=== PATIENT | male | born 1950 | race Caucasian/White ===

== ENCOUNTER 2020-01-04 08:13 | Emergency (ER) | payer MEDICARE, OTHER ==
[2020-01-04] MEDS ORDERED: Ondansetron 4 MG/2 ML SDV IVPUSH ONE (08:28)
[2020-01-04] MEDS ORDERED: Aspirin 81 MG Tab.Chew PO ONE (08:28)
[2020-01-04] MEDS ORDERED: Nitroglycerin/D5W 25 MG/250 ML BOTTLE IV SCH (08:30)
[2020-01-04] MEDS ORDERED: Sodium Chloride 0.9% 1,000 ML IV SCH (08:30)
[2020-01-04] MEDS ORDERED: LORazepam 2 MG/ML SDV IV PRN (08:32)
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
[2020-01-04] MEDS ORDERED: Atropine 0.4 MG/ML SDV IVPUSH ONE (09:24)
[2020-01-04] MEDS ORDERED: fentaNYL 100 MCG/2 ML SDV IVPUSH ONE (09:25)
[2020-01-04] MEDS: Atropine 0.1 MG/ML 10 ML Syringe IVPUSH ONE ×2 (09:31→09:36)
--- NOTE | 2020-01-04 09:36 | CR ---
Chest: Portable view of the chest was obtained. Comparison: No prior chest imaging is available. Heart size and mediastinum are normal. Lungs are clear with no acute parenchymal change. Bony structures are grossly intact. Impression: 1. Nothing acute is appreciated on portable chest x-ray. Diagnostic code #1 This report was dictated in MDT
[2020-01-04] MEDS ORDERED: Metoclopramide 10 MG/2 ML SDV IVPUSH ONE (09:45)
--- NOTE | 2020-01-04 11:01 | CT ---
CT abdomen and pelvis Technique: Multiple axial sections were obtained from above the dome of the diaphragm inferiorly through the pubic symphysis. Intravenous contrast not utilized. Oral contrast has been given. Findings: Coronary artery calcification is seen as well as possible stent. Small amount of contrast is seen within the distal esophagus compatible with reflux. Visualized lung bases show nothing acute. Moderately large hiatal hernia is noted. Noncontrast appearance of the liver and spleen shows no discrete abnormality. Adrenal glands show no nodule. Pancreas shows no discrete abnormality. Gallbladder contains possible small gallstone. Aorta shows atherosclerotic calcification which continues into the iliac vessels. No aneurysm is seen. Right kidney appears within normal limits. Parapelvic cyst is felt to be present within the left kidney. Smaller cortical cysts are also suggested within the left kidney. Ureters show no dilatation or abnormal calcifications. Diverticuli are seen within the descending and sigmoid regions without diverticulitis. Appendix is seen which is normal. No pelvic mass or adenopathy is seen. No free fluid or inflammatory change is appreciated. Bone window settings were reviewed which shows a mild superior endplate concavity within L2 which is most likely old. Diffuse degenerative change noted within the spine. Small fat-containing umbilical hernia is noted. Impression: 1. Left-sided renal cysts as noted above. 2. Moderately large hiatal hernia with mild gastroesophageal reflux. 3. Nothing acute is seen on noncontrast CT study of the abdomen and pelvis. Diagnostic code #2 This report was dictated in MDT
[2020-01-04] MEDS ORDERED: HYDROmorphone 1 MG/ML Syringe IVPUSH ONE (11:20)
[2020-01-04] MEDS ORDERED: Dicyclomine 10 MG Cap PO ONE (11:20)
[2020-01-04] MEDS ORDERED: Hyoscyamine 0.125 MG Tab.SL SL ONE ×2 (11:35→11:47)
== END 2020-01-04 13:16 | disposition home or self-care (01) ==
LOC: JD.ED 08:13
DX: K44.9 Diaphragmatic hernia without obstruction or gangrene (principal); I10 Essential (primary) hypertension; E78.00 Pure hypercholesterolemia, unspecified; K21.9 Gastro-esophageal reflux disease without esophagitis; Z95.5 Presence of coronary angioplasty implant and graft; Z79.899 Other long term (current) drug therapy
CPT/HCPCS: 36415; 71045; 74176; 80053; 82553; 83690; 83735; 83880; 84484; 85025; 85379; 85610; 85730; 86140; 93005; 96365; 96366; 96375; 99285; A9270; J0461; J1170; J2060; J2405; J2765; J3010; J3490; J7030; 93010; 99284

== ENCOUNTER 2020-01-12 10:28 | Observation (INO) | payer MEDICARE, OTHER ==
--- NOTE | 2020-01-12 11:07 | EDM.PDOC ---
ED HPI GENERAL MEDICAL PROBLEM - General Chief Complaint: Fever Stated Complaint: FEVER Time Seen by Provider: 01/12/20 11:02 Source of Information: Reports: Patient, Family (spouse) History Limitations: Reports: No Limitations - History of Present Illness INITIAL COMMENTS - FREE TEXT/NARRATIVE: 69-year-old male presents to the ED for evaluation of spiking fevers over 102 degrees almost every night for the last 4 nights. Associated development of sweats with beads of sweat forming on his forehead. He has had no defined chills or rigors. He has not completely lost his appetite but is eating smaller quantities of food since I diagnosed with hiatal hernia earlier this week. He did see his urologist on Tuesday for review and his PS 2 was down to 0.2 which is lower than it has been but coincidentally the urologist at his CRP and it came back elevated at 85. He had a COVID test done by his primary care physician Dr. Grant on Tuesday and got the results back yesterday as negative. Was exposed to COVID-19 virus with his father being positive while in hospital here and his father succumbed to his illness which was a non-STEMI myocardial infarction. He quarantined for 14 days after that with no symptoms. Denies cough sputum production shortness of breath. He states he otherwise feels fine other than these fevers. He has no sores on his skin. Bowel movements have been normal there is been no nausea or vomiting. No further abdominal pain. Onset: Sudden Onset Date: 01/08/20 Duration: Day(s):, Constant Location: Reports: Generalized (Current spiking temperature of 102 or more usually in the evenings for the last 4 days.) Quality: Reports: Other (No other symptoms other than breaking out in fevers and sweats.) Severity: Moderate Improves with: Reports: None Worsens with: Reports: None Context: Reports: Other (Dense exposure to COVID-19 virus with his father succumbing to illness while in hospital over 2 weeks ago.). Denies: Activity, Exercise, Lifting, Sick Contact, Trauma Associated Symptoms: Reports: Fever/Chills, Loss of Appetite. Denies: Confusion, Chest Pain, Cough, cough w sputum, Diaphoresis, Headaches, Malaise, Nausea/Vomiting, Rash, Seizure, Shortness of Breath, Syncope, Weakness (Spiking fever with no chills.) Treatments INFORMATION RECEPTIONIST: Reports: Acetaminophen - Related Data Allergies Allergy/AdvReac Type Severity Reaction Status Date / Time No Known Allergies Allergy Verified 01/12/20 10:43 Home Meds: Home Meds Ascorbate Calcium [Vitamin C] 500 mg PO BEDTIME 01/04/20 [History] Aspirin [Adult Low Dose Aspirin EC] 81 mg PO BEDTIME 01/04/20 [History] Cetirizine [ZyrTEC] 10 mg PO DAILY 01/04/20 [History] Dicyclomine [Bentyl] 20 mg PO Q6H PRN #8 tablet 01/04/20 [Rx] Ezetimibe [Zetia] 10 mg PO BEDTIME 01/04/20 [History] Levothyroxine [Synthroid] 50 mcg PO DAILY 01/04/20 [History] Omeprazole 40 mg PO DAILY 01/04/20 [History] Rosuvastatin Calcium 20 mg PO BEDTIME 01/04/20 [History] Tamsulosin [Flomax] 0.4 mg PO BEDTIME 01/04/20 [History] Ubidecarenone [Coq-10] 100 mg PO DAILY 01/04/20 [History] atenoloL [Atenolol] 25 mg PO DAILY 01/04/20 [History] lisinopriL [Lisinopril] 10 mg PO BEDTIME 01/04/20 [History] Past Medical History HEENT History: Reports: Impaired Vision Other HEENT History: wears eyeglasses Cardiovascular History: Reports: High Cholesterol, Hypertension, Stents Gastrointestinal History: Reports: GERD, Hiatal Hernia Genitourinary History: Reports: Prostate Disorder, Renal Calculus Musculoskeletal History: Reports: Fracture Endocrine/Metabolic History: Reports: Hypothyroidism Hematologic History: Reports: Iron Deficiency Oncologic (Cancer) History: Reports: Prostate - Infectious Disease History Infectious Disease History: Reports: Chicken Pox, Measles, Mumps - Past Surgical History HEENT Surgical History: Reports: Adenoidectomy, Tonsillectomy Other HEENT Surgeries/Procedures: dental crowns. Other Male Surgeries/Procedures: prostate CA. Musculoskeletal Surgical History: Reports: ORIF Social & Family History - Tobacco Use Smoking Status *Q: Never Smoker Second Hand Smoke Exposure: No - Caffeine Use Caffeine Use: Reports: Coffee - Recreational Drug Use Recreational Drug Use: No - Living Situation & Occupation Living situation: Reports: Occupation: Retired ED [employer] [facility] - Review of Systems Review Of Systems: See Below Constitutional: Reports: Fever, Malaise, Fatigue, Decreased Appetite (Mild fatigue. Mildly decreased appetite.). Denies: Chills HEENT: Reports: Glasses Respiratory: Denies: Shortness of Breath, Wheezing, Pleuritic Chest Pain, Cough, Sputum Cardiovascular: Reports: Other (Has a history of coronary disease with stents in place.) Endocrine: Reports: No Symptoms GI/Abdominal: Reports: Other (History of recently diagnosed and confirmed hiatal hernia on CT exam. This was the reason for his last admission to the ER.) : Reports: Other (Has prostate cancer diagnosed in late 2012 treated with cesium seed implants and hard beam radiation. PS2 done earlier this week Tuesday I believe was 0.2.) Musculoskeletal: Reports: Joint Pain Skin: Reports: No Symptoms (Knees hips neck and low back at times) Neurological: Reports: No Symptoms Psychiatric: Reports: No Symptoms Hematologic/Lymphatic: Reports: No Symptoms Immunologic: Reports: No Symptoms ED EXAM, GENERAL - Physical Exam Exam: See Below Exam Limited By: No Limitations General Appearance: Alert, WD/WN, No Apparent Distress, Other (Has beads of sweat on his forehead. Temperature is 37.1 heart rate was 81 with respiratory of 16 and O2 sats of 95% on room air) Eye Exam: Bilateral Eye: Normal Inspection, PERRL Throat/Mouth: Normal Inspection, Normal Lips, Normal Teeth, Normal Oropharynx Head: Atraumatic, Normocephalic Neck: Normal Inspection, Supple, Non-Tender, Full Range of Motion. No: Carotid Bruit, Lymphadenopathy (L), Lymphadenopathy (R) Respiratory/Chest: No Respiratory Distress, Lungs Clear, Normal Breath Sounds, No Accessory Muscle Use, Chest Non-Tender Cardiovascular: Normal Peripheral Pulses, Regular Rate, Rhythm, No Edema, No Gallop, No JVD, No Murmur, No Rub Peripheral Pulses: 2+: Posterior Tibial (L), Posterior Tibial (R), Dorsalis Pedis (L), Dorsalis Pedis (R), 3+: Carotid (L), Carotid (R) GI/Abdominal: Normal Bowel Sounds, Soft, Non-Tender, No Organomegaly, Distended (Firm to palpation. Slightly tympanitic to percussion.), Tender (Very mild tenderness along the right costal margin but difficult to say that he is actually guarding.), Other (Distended and firm to palpation. Abdominal girth limits ability to palpate solid organs.) Back Exam: Normal Inspection, Full Range of Motion. No: CVA Tenderness (L), CVA Tenderness (R) Extremities: Normal Inspection, Normal Range of Motion, Non-Tender, No Pedal Edema Neurological: Alert, Oriented, CN II-XII Intact, Normal Cognition, Normal Gait Psychiatric: Normal Affect, Normal Mood Skin Exam: Warm, Dry, Normal Color (Is a sweat on his forehead. He does feel mildly warm to palpation.), No Rash, Other EKG INTERPRETATION EKG Date: 01/12/20 Time: 11:57 Rhythm: NSR Rate (Beats/Min): 74 [place]: Normal P-Wave: Present QRS: Other (R wave progression) ST-T: Normal QT: Prolonged (Mildly prolonged) EKG Interpretation Comments: Borderline ECG Course - Vital Signs Last Recorded V/S: Last Vital Signs Temp 38.4 C H 01/12/20 16:35 Pulse 84 01/12/20 16:35 Resp 16 01/12/20 10:36 BP 134/78 01/12/20 16:35 Pulse Ox 98 01/12/20 16:35 - Orders/Labs/Meds Orders: Active Orders 24 hr Category Date Time Status Patient Status [ADT] Routine ADT 01/12/20 16:55 Active EKG Documentation Completion [RC] STAT Care 01/12/20 11:05 Active Notify Provider Consults [RC] ASDIRECTED Care 01/12/20 16:42 Active Consult to Physician [CONS] Stat Cons 01/12/20 16:41 Active Chest 1V Frontal [CR] Stat Exams 01/12/20 11:05 Taken CULTURE BLOOD [BC] Stat Lab 01/12/20 11:40 Received CULTURE BLOOD [BC] Stat Lab 01/12/20 11:54 Received Dextrose 5%-0.9% NaCl [Dextrose 5%-Normal Saline] 1,000 Med 01/12/20 11:15 Active ml IV ASDIRECTED Sodium Chloride 0.9% [Saline Flush] Med 01/12/20 14:16 Active 10 ml FLUSH ONETIME PRN cefTRIAXone [Rocephin] 2 gm Med 01/12/20 14:00 Active Sodium Chloride 0.9% [Normal Saline] 100 ml IV Q24H metroNIDAZOLE/Normal Saline [Flagyl 500 MG in NS 100 ML Med 01/12/20 16:31 Active ] 500 mg Premix Bag 1 bag IV ONETIME Blood Culture x2 Reflex Set [OM.PC] Stat Ot 01/12/20 11:05 Ordered Schedule Procedure [COMM] Stat Ot 01/12/20 16:55 Ordered Medication Orders Dextrose/Sodium Chloride (Dextrose 5%-Normal Saline) 1,000 mls @ 150 mls/hr IV ASDIRECTED [facility] Last Admin: 01/12/20 11:49 Dose: 150 mls/hr Documented by: LAWRENCE Ceftriaxone Sodium 2 gm/ (Sodium Chloride) 100 mls @ 200 mls/hr IV Q24H [facility] Last Admin: 01/12/20 15:00 Dose: 200 mls/hr Documented by: LAWRENCE Metronidazole 500 mg/ Premix 100 mls @ 100 mls/hr IV ONETIME ONE Stop: 01/12/20 17:30 Last Admin: 01/12/20 16:43 Dose: 100 mls/hr Documented by: LAWRENCE Sodium Chloride (Saline Flush) 10 ml FLUSH ONETIME PRN PRN Reason: IV FLUSH Last Admin: 01/12/20 14:51 Dose: 10 ml Documented by: MARLO Labs: Laboratory Tests 01/12/20 01/12/20 01/12/20 Range/Units 11:40 11:40 11:40 WBC 14.67 H (4.23-9.07) K/mm3 RBC 5.05 (4.63-6.08) M/mm3 Hgb 14.8 (13.7-17.5) gm/dl Hct 44.2 (40.1-51.0) % MCV 87.5 (79.0-92.2) fl MCH 29.3 (25.7-32.2) pg MCHC 33.5 (32.2-35.5) g/dl RDW Std Deviation 44.9 H (35.1-43.9) fL Plt Count 249 D (163-337) K/mm3 MPV 9.2 L (9.4-12.3) fl Neutrophils % (Manual) 87 H (40-60) % Band Neutrophils % 0 (0-10) % Lymphocytes % (Manual) 5 L (20-40) % Atypical Lymphs % 0 % Monocytes % (Manual) 8 (2-10) % Eosinophils % (Manual) 0 L (0.8-7.0) % Basophils % (Manual) 0 L (0.2-1.2) Platelet Estimate Adequate RBC Morph Comment Normal ESR (0-15) mm/hr PT 11.4 (9.7-12.0) SECONDS INR 1.05 APTT 29 (22-31) SECONDS D-Dimer, Quantitative (0.19-0.50) mg/L Sodium 138 (136-145) mEq/L Potassium 3.8 (3.5-5.1) mEq/L Chloride 101 (98-107) mEq/L Carbon Dioxide 26 (21-32) mEq/L Anion Gap 14.8 (5-15) BUN 11 (7-18) mg/dL Creatinine 1.2 (0.7-1.3) mg/dL Est Cr Clr Drug Dosing 57.00 mL/min Estimated GFR (MDRD) > 60 (>60) mL/min BUN/Creatinine Ratio 9.2 L (14-18) Glucose 145 H (80-115) mg/dL Lactic Acid (0.4-2.0) mmol/L Calcium 8.5 (8.5-10.1) mg/dL Magnesium 2.2 (1.8-2.4) mg/dl Ferritin (26-388) ng/ml Total Bilirubin 1.7 H (0.2-1.0) mg/dL GGT (15-85) U/L AST 16 (15-37) U/L ALT 33 (16-63) U/L Alkaline Phosphatase 66 (46-116) U/L Lactate Dehydrogenase 194 (85-227) U/L Troponin I < 0.017 (0.00-0.056) ng/mL C-Reactive Protein 15.5 H* (<1.0) mg/dL NT-Pro-B Natriuret Pep (0-125) pg/mL Total Protein 7.7 (6.4-8.2) g/dl Albumin 3.3 L (3.4-5.0) g/dl Globulin 4.4 gm/dL Albumin/Globulin Ratio 0.8 L (1-2) Lipase (73-393) U/L Urine Color (Yellow) Urine Appearance (Clear) Urine pH (5.0-8.0) Ur Specific [place] (1.005-1.030) Urine Protein (Negative) Urine Glucose (UA) (Negative) Urine Ketones (Negative) Urine Occult Blood (Negative) Urine Nitrite (Negative) Urine Bilirubin (Negative) Urine Urobilinogen (0.2-1.0) Ur Leukocyte Esterase (Negative) Urine RBC (0-5) /hpf Urine WBC (0-5) /hpf Ur Squamous Epith Cells (0-5) /hpf Urine Bacteria (FEW) /hpf Urine Mucus (FEW) /hpf SARS Virus RNA (PCR) (NEGATIVE) 01/12/20 01/12/20 01/12/20 Range/Units 11:40 11:40 11:40 WBC (4.23-9.07) K/mm3 RBC (4.63-6.08) M/mm3 Hgb (13.7-17.5) gm/dl Hct (40.1-51.0) % MCV (79.0-92.2) fl MCH (25.7-32.2) pg MCHC (32.2-35.5) g/dl RDW Std Deviation (35.1-43.9) fL Plt Count (163-337) K/mm3 MPV (9.4-12.3) fl Neutrophils % (Manual) (40-60) % Band Neutrophils % (0-10) % Lymphocytes % (Manual) (20-40) % Atypical Lymphs % % Monocytes % (Manual) (2-10) % Eosinophils % (Manual) (0.8-7.0) % Basophils % (Manual) (0.2-1.2) Platelet Estimate RBC Morph Comment ESR 70 H (0-15) mm/hr PT (9.7-12.0) SECONDS INR APTT (22-31) SECONDS D-Dimer, Quantitative (0.19-0.50) mg/L Sodium (136-145) mEq/L Potassium (3.5-5.1) mEq/L Chloride (98-107) mEq/L Carbon Dioxide (21-32) mEq/L Anion Gap (5-15) BUN (7-18) mg/dL Creatinine (0.7-1.3) mg/dL Est Cr Clr Drug Dosing mL/min Estimated GFR (MDRD) (>60) mL/min BUN/Creatinine Ratio (14-18) Glucose (80-115) mg/dL Lactic Acid 1.0 (0.4-2.0) mmol/L Calcium (8.5-10.1) mg/dL Magnesium (1.8-2.4) mg/dl Ferritin 272 (26-388) ng/ml Total Bilirubin (0.2-1.0) mg/dL GGT (15-85) U/L AST (15-37) U/L ALT (16-63) U/L Alkaline Phosphatase (46-116) U/L Lactate Dehydrogenase (85-227) U/L Troponin I (0.00-0.056) ng/mL C-Reactive Protein (<1.0) mg/dL NT-Pro-B Natriuret Pep (0-125) pg/mL Total Protein (6.4-8.2) g/dl Albumin (3.4-5.0) g/dl Globulin gm/dL Albumin/Globulin Ratio (1-2) Lipase (73-393) U/L Urine Color (Yellow) Urine Appearance (Clear) Urine pH (5.0-8.0) Ur Specific [place] (1.005-1.030) Urine Protein (Negative) Urine Glucose (UA) (Negative) Urine Ketones (Negative) Urine Occult Blood (Negative) Urine Nitrite (Negative) Urine Bilirubin (Negative) Urine Urobilinogen (0.2-1.0) Ur Leukocyte Esterase (Negative) Urine RBC (0-5) /hpf Urine WBC (0-5) /hpf Ur Squamous Epith Cells (0-5) /hpf Urine Bacteria (FEW) /hpf Urine Mucus (FEW) /hpf SARS Virus RNA (PCR) (NEGATIVE) 01/12/20 01/12/20 01/12/20 Range/Units 11:40 11:40 11:40 WBC (4.23-9.07) K/mm3 RBC (4.63-6.08) M/mm3 Hgb (13.7-17.5) gm/dl Hct (40.1-51.0) % MCV (79.0-92.2) fl MCH (25.7-32.2) pg MCHC (32.2-35.5) g/dl RDW Std Deviation (35.1-43.9) fL Plt Count (163-337) K/mm3 MPV (9.4-12.3) fl Neutrophils % (Manual) (40-60) % Band Neutrophils % (0-10) % Lymphocytes % (Manual) (20-40) % Atypical Lymphs % % Monocytes % (Manual) (2-10) % Eosinophils % (Manual) (0.8-7.0) % Basophils % (Manual) (0.2-1.2) Platelet Estimate RBC Morph Comment ESR (0-15) mm/hr PT (9.7-12.0) SECONDS INR APTT (22-31) SECONDS D-Dimer, Quantitative 1.78 H (0.19-0.50) mg/L Sodium (136-145) mEq/L Potassium (3.5-5.1) mEq/L Chloride (98-107) mEq/L Carbon Dioxide (21-32) mEq/L Anion Gap (5-15) BUN (7-18) mg/dL Creatinine (0.7-1.3) mg/dL Est Cr Clr Drug Dosing mL/min Estimated GFR (MDRD) (>60) mL/min BUN/Creatinine Ratio (14-18) Glucose (80-115) mg/dL Lactic Acid (0.4-2.0) mmol/L Calcium (8.5-10.1) mg/dL Magnesium (1.8-2.4) mg/dl Ferritin (26-388) ng/ml Total Bilirubin (0.2-1.0) mg/dL GGT 108 H (15-85) U/L AST (15-37) U/L ALT (16-63) U/L Alkaline Phosphatase (46-116) U/L Lactate Dehydrogenase (85-227) U/L Troponin I (0.00-0.056) ng/mL C-Reactive Protein (<1.0) mg/dL NT-Pro-B Natriuret Pep 269 H (0-125) pg/mL Total Protein (6.4-8.2) g/dl Albumin (3.4-5.0) g/dl Globulin gm/dL Albumin/Globulin Ratio (1-2) Lipase 75 (73-393) U/L Urine Color (Yellow) Urine Appearance (Clear) Urine pH (5.0-8.0) Ur Specific [place] (1.005-1.030) Urine Protein (Negative) Urine Glucose (UA) (Negative) Urine Ketones (Negative) Urine Occult Blood (Negative) Urine Nitrite (Negative) Urine Bilirubin (Negative) Urine Urobilinogen (0.2-1.0) Ur Leukocyte Esterase (Negative) Urine RBC (0-5) /hpf Urine WBC (0-5) /hpf Ur Squamous Epith Cells (0-5) /hpf Urine Bacteria (FEW) /hpf Urine Mucus (FEW) /hpf SARS Virus RNA (PCR) (NEGATIVE) 01/12/20 01/12/20 Range/Units 11:44 12:44 WBC (4.23-9.07) K/mm3 RBC (4.63-6.08) M/mm3 Hgb (13.7-17.5) gm/dl Hct (40.1-51.0) % MCV (79.0-92.2) fl MCH (25.7-32.2) pg MCHC (32.2-35.5) g/dl RDW Std Deviation (35.1-43.9) fL Plt Count (163-337) K/mm3 MPV (9.4-12.3) fl Neutrophils % (Manual) (40-60) % Band Neutrophils % (0-10) % Lymphocytes % (Manual) (20-40) % Atypical Lymphs % % Monocytes % (Manual) (2-10) % Eosinophils % (Manual) (0.8-7.0) % Basophils % (Manual) (0.2-1.2) Platelet Estimate RBC Morph Comment ESR (0-15) mm/hr PT (9.7-12.0) SECONDS INR APTT (22-31) SECONDS D-Dimer, Quantitative (0.19-0.50) mg/L Sodium (136-145) mEq/L Potassium (3.5-5.1) mEq/L Chloride (98-107) mEq/L Carbon Dioxide (21-32) mEq/L Anion Gap (5-15) BUN (7-18) mg/dL Creatinine (0.7-1.3) mg/dL Est Cr Clr Drug Dosing mL/min Estimated GFR (MDRD) (>60) mL/min BUN/Creatinine Ratio (14-18) Glucose (80-115) mg/dL Lactic Acid (0.4-2.0) mmol/L Calcium (8.5-10.1) mg/dL Magnesium (1.8-2.4) mg/dl Ferritin (26-388) ng/ml Total Bilirubin (0.2-1.0) mg/dL GGT (15-85) U/L AST (15-37) U/L ALT (16-63) U/L Alkaline Phosphatase (46-116) U/L Lactate Dehydrogenase (85-227) U/L Troponin I (0.00-0.056) ng/mL C-Reactive Protein (<1.0) mg/dL NT-Pro-B Natriuret Pep (0-125) pg/mL Total Protein (6.4-8.2) g/dl Albumin (3.4-5.0) g/dl Globulin gm/dL Albumin/Globulin Ratio (1-2) Lipase (73-393) U/L Urine Color Yellow (Yellow) Urine Appearance Clear (Clear) Urine pH 7.0 (5.0-8.0) Ur Specific [place] 1.015 (1.005-1.030) Urine Protein Trace H (Negative) Urine Glucose (UA) Negative (Negative) Urine Ketones Negative (Negative) Urine Occult Blood Trace-intact H (Negative) Urine Nitrite Negative (Negative) Urine Bilirubin Negative (Negative) Urine Urobilinogen 1.0 (0.2-1.0) Ur Leukocyte Esterase Negative (Negative) Urine RBC 0-5 (0-5) /hpf Urine WBC 0-5 (0-5) /hpf Ur Squamous Epith Cells 5-10 H (0-5) /hpf Urine Bacteria Few (FEW) /hpf Urine Mucus Not seen (FEW) /hpf SARS Virus RNA (PCR) Negative (NEGATIVE) Meds: Medications Generic Name Dose Route Start Last Admin Trade Name Freq PRN Reason Stop Dose Admin Dextrose/Sodium Chloride 1,000 mls @ 150 mls/hr 01/12/20 11:15 01/12/20 11:49 Dextrose 5%-Normal Saline IV 150 mls/hr ASDIRECTED PIERO Administration Ceftriaxone Sodium 2 gm/ 100 mls @ 200 mls/hr 01/12/20 14:00 01/12/20 15:00 Sodium Chloride IV 200 mls/hr Q24H PIERO Administration Metronidazole 500 mg/ Premix 100 mls @ 100 mls/hr 01/12/20 16:31 01/12/20 16:43 IV 01/12/20 17:30 100 mls/hr ONETIME ONE Administration Sodium Chloride 10 ml 01/12/20 14:16 01/12/20 14:51 Saline Flush FLUSH 10 ml ONETIME PRN Administration IV FLUSH Discontinued Medications Generic Name Dose Route Start Last Admin Trade Name Kemi PRN Reason Stop Dose Admin Fentanyl Confirm 01/12/20 17:01 Sublimaze Administered 01/12/20 17:02 Dose 250 mcg .ROUTE .STK-MED ONE Lidocaine HCl Confirm 01/12/20 17:02 Xylocaine-Mpf 1% Administered 01/12/20 17:03 Dose 4 mls @ as directed .ROUTE .STK-MED ONE Iopamidol 100 ml 01/12/20 14:16 01/12/20 14:51 Isovue-300 (61%) IVPUSH 01/12/20 14:17 100 ml ONETIME ONE Administration Midazolam HCl Confirm 01/12/20 17:01 Versed 1 Mg/Ml Administered 01/12/20 17:02 Dose 2 mg .ROUTE .STK-MED ONE Ondansetron HCl Confirm 01/12/20 17:01 Zofran Administered 01/12/20 17:02 Dose 4 mg .ROUTE .STK-MED ONE Propofol Confirm 01/12/20 17:01 Diprivan 20 Ml Administered 01/12/20 17:02 Dose 200 mg .ROUTE .STK-MED ONE Rocuronium Winifred Confirm 01/12/20 17:01 Zemuron Administered 01/12/20 17:02 Dose 50 mg .ROUTE .STK-MED ONE - Radiology Interpretation Free Text/Narrative:: 69-year-old male presents to the ED due to spiking fevers of greater than 102 degrees usually in the evenings for the last 4 days. He has been exposed to COVID-19 virus with his father dying in the hospital here with a non-STEMI and was proven to be of COVID positive here but negative at the lab test in [place] [id number]. She was tested here 4 days ago and got the results back yesterday as being negative. However when he was at the urologist on Tuesday he had a PSA of 0.2 but a CRP was 85 strongly suggesting an underlying infective process as an particularly COVID testing this provenrevealed very high CRPs. He is minimally warm to palpation at this time with a temperature 37.1 by nurses recording but he feels slightly warmer than this on exam. He has no other symptoms of sore throat no cough no shortness of breath benign abdomen on examination no integument problems. Plan COVID screen will be done again. He will also have a serum ferritin, LDH, d-dimer, troponin, and repeat CRP in addition to lactic acid and blood cultures x2. IV will be D5 normal saline 150 mils per hour. - Re-Assessments/Exams Free Text/Narrative Re-Assessment/Exam: 01/12/20 12:01 chest x-ray done portably reveals slightly hyperinflated lung ny bilaterally. Cardiac silhouette is within normal limits. Lung bases are clear. No pleural effusions no pneumothorax perhaps very minimal increased vascular congestion by portable technique. It is unchanged when compared to chest x-ray done January 03. 01/12/20 12:39 Count is elevated at 14.67. It reveals 87% neutrophils and no bands cells. Hemoglobin is 14.8 with hematocrit of 44.2. Platelet counts 249,000. PT is 11.4 with an INR of 1.05 PTT is 29. D-dimer is elevated at 1.78. Lactic acid is 1.0 Free Text/Narrative Re-Assessment/Exam: 01/12/20 13:09 Chemistry is now back showing a sodium of 138 and a potassium of 3.8. Chloride is 101 with a bicarb of 26. Anion gap is 14.8. BUN is 11 with a creatinine of 1.2. GFR remains greater than 60. Glucose is mildly elevated at 145 and he is known to be diabetic. Lactic acid is 1.0. Calcium is 8.5 with a magnesium of 2.2. Serum ferritin is normal at 272. Bilirubin mildly elevated at 1.7 AST is 16 with an ALT of 33 alk phosphatase is 66. LDH is 194 with normal our lab being up to 227. Troponin I is less than 0.017. C-reactive protein is elevated at 15.5. BNP is 269. Total protein 7.7 with albumin fraction of 3.3. Patient obviously has an infective process somewhere. I am going to have CT of the abdomen and pelvis performed to look for an intra- abdominal source of infection. In the meantime I will start him on Rocephin 2 g intravenously. 01/12/20 14:06 Covid-19 test came back negative. Urinalysis shows 5-10 squamous epithelial cells and a few red cells. No signs of infection 01/12/20 14:51 CT of the abdomen and pelvis has been completed. Visualized portions of the lung ny are clear. Does have a moderate sized hiatal hernia. Liver appears homogeneous without any intraductal dilatation. Mild fatty infiltration. Gallbladder is distended and appears to have significant inflammation superior and medial to the gallbladder suggesting pericholecystic fluid. Their is wall thickening as well as edema appreciated. Findings are highly suspicious for acute cholecystitis. Note this is an interval change from CT done 5 days ago. No definitive gallstones are evident. Pancreas appears to be within normal limits. Spleen and stomach appear to be normal. Adrenal glands appear to be normal. There is a large cyst off the superior pole of the left kidney and also smaller cyst inferior to this. Ureters appear to be within normal limits with no obstruction. He does have a lot of diverticuli throughout the entire descending and sigmoid colon without any evidence of diverticulitis. Appendix is visualized and it consist is considered to be normal. Prostate is slightly enlarged. To proceed with an ultrasound of his gallbladder so that surgery has a complete picture of his gallbladder. He has not been able to eat since yesterday. 01/12/20 15:36 serum lipase is normal at 95. GGT is minimally elevated at 108. No signs of biliary tree obstruction. 01/12/20 16:33 stone of the gallbladder has been completed. Liver does show no intraductal dilatation but mild fatty infiltration. The gallbladder itself is elongated and appears to be about half full of sludge. There may or may not be but some very small sesame seed-like stones within. There is a significant swelling of the gallbladder wall indicating acute cholecystitis. Of note the common bile duct and hepatic ducts are not well visualized due to bowel gas. I have therefore hung Flagyl 500 mg intravenously. On reexamination the patient has once again spiked a fever. I will therefore speak to on-call surgeon Dr. Florentino Lechuga in this regard. 01/12/20 16:39 Discussed the case with on-call surgeon Dr. Florentino Lechuga and he will see the patient in the ED. It appears the patient has a hot gallbladder and is a candidate for laparoscopic cholecystectomy on a urgent basis. He is asked therefore that I call the OR team in to have him assessed by anesthesia with a view to pursuing operative intervention as soon as possible. 01/12/20 17:00: Dr. Lechuga is here to assess the patient. Departure - Departure Time of Disposition: 17:15 Disposition: DC/Tfer to Critical Access [facility] Condition: Serious Clinical Impression: Acute cholecystitis without calculus, Acute febrile illness - Discharge Information *PRESCRIPTION DRUG MONITORING PROGRAM REVIEWED*: Not Applicable *COPY OF PRESCRIPTION DRUG MONITORING REPORT IN PATIENT DARLENE: Not Applicable Sepsis Event Note (ED) - Evaluation Sepsis Screening Result: No Definite Risk - Focused Exam Vital Signs: Vital Signs Temp Pulse Resp BP Pulse Ox 01/12/20 16:35 38.4 C H 84 134/78 98 01/12/20 10:36 37.1 C 81 16 120/79 95 - My Orders Last 24 Hours: My Active Orders 01/12/20 11:05 EKG Documentation Completion [RC] STAT Chest 1V Frontal [CR] Stat Blood Culture x2 Reflex Set [OM.PC] Stat 01/12/20 11:15 Dextrose 5%-0.9% NaCl [Dextrose 5%-Normal Saline] 1,000 ml IV ASDIRECTED 01/12/20 11:40 CULTURE BLOOD [BC] Stat 01/12/20 11:54 CULTURE BLOOD [BC] Stat 01/12/20 14:00 cefTRIAXone [Rocephin] 2 gm Sodium Chloride 0.9% [Normal Saline] 100 ml IV Q24H 01/12/20 14:16 Sodium Chloride 0.9% [Saline Flush] 10 ml FLUSH ONETIME PRN 01/12/20 16:31 metroNIDAZOLE/Normal Saline [Flagyl 500 MG in NS 100 ML] 500 mg Premix Bag 1 bag IV ONETIME 01/12/20 16:55 Patient Status [ADT] Routine Schedule Procedure [COMM] Stat - Assessment/Plan Last 24 Hours: My Active Orders 01/12/20 11:05 EKG Documentation Completion [RC] STAT Chest 1V Frontal [CR] Stat Blood Culture x2 Reflex Set [OM.PC] Stat 01/12/20 11:15 Dextrose 5%-0.9% NaCl [Dextrose 5%-Normal Saline] 1,000 ml IV ASDIRECTED 01/12/20 11:40 CULTURE BLOOD [BC] Stat 01/12/20 11:54 CULTURE BLOOD [BC] Stat 01/12/20 14:00 cefTRIAXone [Rocephin] 2 gm Sodium Chloride 0.9% [Normal Saline] 100 ml IV Q24H 01/12/20 14:16 Sodium Chloride 0.9% [Saline Flush] 10 ml FLUSH ONETIME PRN 01/12/20 16:31 metroNIDAZOLE/Normal Saline [Flagyl 500 MG in NS 100 ML] 500 mg Premix Bag 1 bag IV ONETIME 01/12/20 16:55 Patient Status [ADT] Routine Schedule Procedure [COMM] Stat
[2020-01-12] MEDS ORDERED: Dextrose 5%-0.9% NaCl 1,000 ML IV SCH (11:15)
[2020-01-12] MEDS ORDERED: Sodium Chloride 0.9% 10 ML Syringe FLUSH PRN (14:16)
[2020-01-12] MEDS ORDERED: Iopamidol 612 MG/ML 100 ML Bottle IVPUSH ONE (14:16)
[2020-01-12] MEDS: cefTRIAXone 2 GM in Sodium Chloride 0.9% 100 ML IV SCH (15:00)
--- NOTE | 2020-01-12 15:06 | CT ---
CT abdomen and pelvis Technique: Multiple axial sections were obtained from above the dome of the diaphragm inferiorly through the pubic symphysis. Intravenous contrast was utilized. No oral contrast has been given. Comparison: Prior CT abdomen and pelvis study of 01/04/20. Findings: Visualized lung bases shows minimal atelectasis. Liver shows no focal parenchymal abnormality. Moderately large hiatal hernia is noted. Spleen is normal. Gallbladder shows wall thickening as well as wall edema. Mild surrounding inflammatory change is seen. Findings are highly suspicious for acute cholecystitis. This finding is an interval change from previous study. Adrenal glands show no nodule. Pancreas is within normal limits. Kidneys show is contrast enhancement. Cysts are noted within the left kidney. Dilated renal pelvis noted within the left kidney which is felt compatible with functional UPJ obstruction. No ureteral calcifications are seen. Aorta shows atherosclerotic change which continues into the iliac vessels. No retroperitoneal adenopathy or mesenteric abnormalities are seen. No pelvic mass or adenopathy is seen. Diverticuli are seen within the descending and sigmoid colon without diverticulitis. Delayed images shows contrast within the distal ureters and within the bladder. Appendix is seen which is normal. Bone window settings were reviewed which shows mild scattered degenerative change within the spine. Mild endplate concavity seen superiorly within the L2 vertebral body which is stable. Impression: 1. Findings as described above highly suspicious for acute cholecystitis. 2. Other findings believed to be nonacute. Diagnostic code #5 This report was dictated in MDT
[2020-01-12] MEDS ORDERED: metroNIDAZOLE/Normal Saline 500 MG in Premix Bag 1 BAG IV ONE (16:31)
[2020-01-12] MEDS ORDERED: Midazolam 1 MG/ML 2 ML SDV ONE (17:01)
[2020-01-12] MEDS ORDERED: Propofol 200 MG/20 ML SDV ONE (17:01)
[2020-01-12] MEDS ORDERED: Rocuronium 50 MG/5 ML Vial ONE ×2 (17:01→19:29)
[2020-01-12] MEDS ORDERED: fentaNYL 250 MCG/5 ML SDV ONE (17:01)
[2020-01-12] MEDS ORDERED: Ondansetron 4 MG/2 ML SDV ONE (17:01)
[2020-01-12] MEDS ORDERED: Lidocaine 1% 4 ML ONE (17:02)
--- NOTE | 2020-01-12 17:03 | US ---
Limited abdominal ultrasound: Multiple real-time images of the upper right abdomen were obtained. Comparison: Prior CT abdomen and pelvis study performed earlier on the same day (2:29 PM). Findings: Gallbladder contains sludge. Gallbladder wall is diffusely thickened. CBD and CHD are not seen due to bowel gas. Liver shows no discrete abnormality. Right kidney not well seen. Main portal vein shows hepatopedal flow. Impression: 1. Diffusely thickened gallbladder wall with gallbladder containing sludge. 2. Nonvisualized CBD and CHD. 3. No discrete abnormality within the liver. Diagnostic code #3 This report was dictated in MDT
[2020-01-12] MEDS ORDERED: Bupivacaine 0.5%/EPINEPHrine 1:200,000 50 ML MDV ONE (17:13)
--- NOTE | 2020-01-12 17:27 | PCM.PREANE ---
Preanesthetic Assessment - Procedure Proposed Procedure: laparoscopic cholecystectomy - Anesthesia/Transfusion/Family Hx Anesthesia History: Prior Anesthesia Without Reaction Family History of Anesthesia Reaction: No Transfusion History: No Prior Transfusion(s) - Review of Systems General: Weakness, Fatigue, Malaise Pulmonary: No Symptoms Cardiovascular: No Symptoms Gastrointestinal: Abdominal Pain (RUQ), Decreased Appetite Neurological: No Symptoms Other: Reports: Easy Bruising, Thyroid Problems (hypothyroid) - Physical Assessment NPO Status Date: 01/11/20 NPO Status Time: 17:00 Vital Signs: Last Vital Signs Temp 38.4 C H 01/12/20 16:35 Pulse 84 01/12/20 16:35 Resp 16 01/12/20 10:36 BP 134/78 01/12/20 16:35 Pulse Ox 98 01/12/20 16:35 Height: 1.73 m Weight: 99.79 kg ASA Class: 3 Mental Status: Alert & Oriented x3 Airway Class: Mallampati = 2 Dentition: Reports: [place](s), Implants (top over existing teeth) Thyro-Mental Finger Breadths: 2 Mouth Opening Finger Breadths: 2 ROM/Head Extension: Full Lungs: Clear to Auscultation, Normal Respiratory Effort Cardiovascular: Regular Rate, Regular Rhythm - Lab Values: Laboratory Last Values WBC 14.67 K/mm3 (4.23-9.07) H 01/12/20 11:40 RBC 5.05 M/mm3 (4.63-6.08) 01/12/20 11:40 Hgb 14.8 gm/dl (13.7-17.5) 01/12/20 11:40 Hct 44.2 % (40.1-51.0) 01/12/20 11:40 MCV 87.5 fl (79.0-92.2) 01/12/20 11:40 MCH 29.3 pg (25.7-32.2) 01/12/20 11:40 MCHC 33.5 g/dl (32.2-35.5) 01/12/20 11:40 RDW Std Deviation 44.9 fL (35.1-43.9) H 01/12/20 11:40 Plt Count 249 K/mm3 (163-337) D 01/12/20 11:40 MPV 9.2 fl (9.4-12.3) L 01/12/20 11:40 Neutrophils % (Manual) 87 % (40-60) H 01/12/20 11:40 Band Neutrophils % 0 % (0-10) 01/12/20 11:40 Lymphocytes % (Manual) 5 % (20-40) L 01/12/20 11:40 Atypical Lymphs % 0 % 01/12/20 11:40 Monocytes % (Manual) 8 % (2-10) 01/12/20 11:40 Eosinophils % (Manual) 0 % (0.8-7.0) L 01/12/20 11:40 Basophils % (Manual) 0 (0.2-1.2) L 01/12/20 11:40 Platelet Estimate Adequate 01/12/20 11:40 RBC Morph Comment Normal 01/12/20 11:40 ESR 70 mm/hr (0-15) H 01/12/20 11:40 PT 11.4 SECONDS (9.7-12.0) 01/12/20 11:40 INR 1.05 01/12/20 11:40 APTT 29 SECONDS (22-31) 01/12/20 11:40 D-Dimer, Quantitative 1.78 mg/L (0.19-0.50) H 01/12/20 11:40 Sodium 138 mEq/L (136-145) 01/12/20 11:40 Potassium 3.8 mEq/L (3.5-5.1) 01/12/20 11:40 Chloride 101 mEq/L (98-107) 01/12/20 11:40 Carbon Dioxide 26 mEq/L (21-32) 01/12/20 11:40 Anion Gap 14.8 (5-15) 01/12/20 11:40 BUN 11 mg/dL (7-18) 01/12/20 11:40 Creatinine 1.2 mg/dL (0.7-1.3) 01/12/20 11:40 Est Cr Clr Drug Dosing 57.00 mL/min 01/12/20 11:40 Estimated GFR (MDRD) > 60 mL/min (>60) 01/12/20 11:40 BUN/Creatinine Ratio 9.2 (14-18) L 01/12/20 11:40 Glucose 145 mg/dL (80-115) H 01/12/20 11:40 Lactic Acid 1.0 mmol/L (0.4-2.0) 01/12/20 11:40 Calcium 8.5 mg/dL (8.5-10.1) 01/12/20 11:40 Magnesium 2.2 mg/dl (1.8-2.4) 01/12/20 11:40 Ferritin 272 ng/ml (26-388) 01/12/20 11:40 Total Bilirubin 1.7 mg/dL (0.2-1.0) H 01/12/20 11:40 GGT 108 U/L (15-85) H 01/12/20 11:40 AST 16 U/L (15-37) 01/12/20 11:40 ALT 33 U/L (16-63) 01/12/20 11:40 Alkaline Phosphatase 66 U/L (46-116) 01/12/20 11:40 Lactate Dehydrogenase 194 U/L (85-227) 01/12/20 11:40 Troponin I < 0.017 ng/mL (0.00-0.056) 01/12/20 11:40 C-Reactive Protein 15.5 mg/dL (<1.0) H* 01/12/20 11:40 NT-Pro-B Natriuret Pep 269 pg/mL (0-125) H 01/12/20 11:40 Total Protein 7.7 g/dl (6.4-8.2) 01/12/20 11:40 Albumin 3.3 g/dl (3.4-5.0) L 01/12/20 11:40 Globulin 4.4 gm/dL 01/12/20 11:40 Albumin/Globulin Ratio 0.8 (1-2) L 01/12/20 11:40 Lipase 75 U/L (73-393) 01/12/20 11:40 Urine Color Yellow (Yellow) 01/12/20 12:44 Urine Appearance Clear (Clear) 01/12/20 12:44 Urine pH 7.0 (5.0-8.0) 01/12/20 12:44 Ur Specific [place] 1.015 (1.005-1.030) 01/12/20 12:44 Urine Protein Trace (Negative) H 01/12/20 12:44 Urine Glucose (UA) Negative (Negative) 01/12/20 12:44 Urine Ketones Negative (Negative) 01/12/20 12:44 Urine Occult Blood Trace-intact (Negative) H 01/12/20 12:44 Urine Nitrite Negative (Negative) 01/12/20 12:44 Urine Bilirubin Negative (Negative) 01/12/20 12:44 Urine Urobilinogen 1.0 (0.2-1.0) 01/12/20 12:44 Ur Leukocyte Esterase Negative (Negative) 01/12/20 12:44 Urine RBC 0-5 /hpf (0-5) 01/12/20 12:44 Urine WBC 0-5 /hpf (0-5) 01/12/20 12:44 Ur Squamous Epith Cells 5-10 /hpf (0-5) H 01/12/20 12:44 Urine Bacteria Few /hpf (FEW) 01/12/20 12:44 Urine Mucus Not seen /hpf (FEW) 01/12/20 12:44 SARS Virus RNA (PCR) Negative (NEGATIVE) 01/12/20 11:44 - Allergies Allergies/Adverse Reactions: Allergies Allergy/AdvReac Type Severity Reaction Status Date / Time No Known Allergies Allergy Verified 01/12/20 10:43 - Anesthesia Plan Pre-Op Medication Ordered: None - Acknowledgements Anesthesia Type Planned: General Anesthesia Pt an Appropriate Candidate for the Planned Anesthesia: Yes Alternatives and Risks of Anesthesia Discussed w Pt/Guardian: Yes Pt/Guardian Understands and Agrees with Anesthesia Plan: Yes PreAnesthesia Questionnaire HEENT History: Reports: Impaired Vision Other HEENT History: wears eyeglasses Cardiovascular History: Reports: High Cholesterol, Hypertension, Stents Gastrointestinal History: Reports: GERD, Hiatal Hernia Genitourinary History: Reports: Prostate Disorder, Renal Calculus Musculoskeletal History: Reports: Fracture Endocrine/Metabolic History: Reports: Hypothyroidism Hematologic History: Reports: Iron Deficiency Oncologic (Cancer) History: Reports: Prostate - Infectious Disease History Infectious Disease History: Reports: Chicken Pox, Measles, Mumps - Past Surgical History HEENT Surgical History: Reports: Adenoidectomy, Tonsillectomy Other HEENT Surgeries/Procedures: dental crowns. Other Male Surgeries/Procedures: prostate CA. Musculoskeletal Surgical History: Reports: ORIF - SUBSTANCE USE Smoking Status *Q: Former Smoker (15 years ago) Tobacco Use Within Last Twelve Months: No Second Hand Smoke Exposure: No Days Per Week of Alcohol Use: 1 Number of Drinks Per Day: 0 Total Drinks Per Week: 0 Recreational Drug Use History: No - HOME MEDS Home Medications: Home Meds Ascorbate Calcium [Vitamin C] 500 mg PO BEDTIME 01/04/20 [History] Aspirin [Adult Low Dose Aspirin EC] 81 mg PO BEDTIME 01/04/20 [History] Cetirizine [ZyrTEC] 10 mg PO DAILY 01/04/20 [History] Dicyclomine [Bentyl] 20 mg PO Q6H PRN #8 tablet 01/04/20 [Rx] Ezetimibe [Zetia] 10 mg PO BEDTIME 01/04/20 [History] Levothyroxine [Synthroid] 50 mcg PO DAILY 01/04/20 [History] Omeprazole 40 mg PO DAILY 01/04/20 [History] Rosuvastatin Calcium 20 mg PO BEDTIME 01/04/20 [History] Tamsulosin [Flomax] 0.4 mg PO BEDTIME 01/04/20 [History] Ubidecarenone [Coq-10] 100 mg PO DAILY 01/04/20 [History] atenoloL [Atenolol] 25 mg PO DAILY 01/04/20 [History] lisinopriL [Lisinopril] 10 mg PO BEDTIME 01/04/20 [History] - CURRENT (IN HOUSE) MEDS Current Meds: Current Medications Dextrose/Sodium Chloride (Dextrose 5%-Normal Saline) 1,000 mls @ 150 mls/hr IV ASDIRECTED [facility] [place] Last Admin: 01/12/20 11:49 Dose: 150 mls/hr Documented by: Ceftriaxone Sodium 2 gm/ (Sodium Chloride) 100 mls @ 200 mls/hr IV Q24H [facility] [place] Last Admin: 01/12/20 15:00 Dose: 200 mls/hr Documented by: Metronidazole 500 mg/ Premix 100 mls @ 100 mls/hr IV ONETIME ONE Stop: 01/12/20 17:30 Last Admin: 01/12/20 16:43 Dose: 100 mls/hr Documented by: Sodium Chloride (Saline Flush) 10 ml FLUSH ONETIME PRN PRN Reason: IV FLUSH Last Admin: 01/12/20 14:51 Dose: 10 ml Documented by: Discontinued Medications Bupivacaine HCl/Epinephrine Bitart (Marcaine 0.5%/Epinephrine 1:200,000) Confirm Administered Dose 50 ml .ROUTE .STK-MED ONE Stop: 01/12/20 17:14 Fentanyl (Sublimaze) Confirm Administered Dose 250 mcg .ROUTE .STK-MED ONE Stop: 01/12/20 17:02 Lidocaine HCl (Xylocaine-Mpf 1%) Confirm Administered Dose 4 mls @ as directed .ROUTE .STK-MED ONE Stop: 01/12/20 17:03 Iopamidol (Isovue-300 (61%)) 100 ml IVPUSH ONETIME ONE Stop: 01/12/20 14:17 Last Admin: 01/12/20 14:51 Dose: 100 ml Documented by: Midazolam HCl (Versed 1 Mg/Ml) Confirm Administered Dose 2 mg .ROUTE .STK-MED ONE Stop: 01/12/20 17:02 Ondansetron HCl (Zofran) Confirm Administered Dose 4 mg .ROUTE .STK-MED ONE Stop: 01/12/20 17:02 Propofol (Diprivan 20 Ml) Confirm Administered Dose 200 mg .ROUTE .STK-MED ONE Stop: 01/12/20 17:02 Rocuronium Sledge (Zemuron) Confirm Administered Dose 50 mg .ROUTE .STK-MED ONE Stop: 01/12/20 17:02
[2020-01-12] MEDS ORDERED: Sodium Chloride 0.9% 50 ML SDV ONE ×2 (17:28→18:01)
[2020-01-12] MEDS ORDERED: Iopamidol 612 MG/ML 50 ML SDV ONE (17:28)
--- NOTE | 2020-01-12 17:29 | PCM.HP.2 ---
H&P History of Present Illness - General Date of Service: 01/12/20 Admit Problem/Dx: Admission Diagnosis/Problem Admission Diagnosis/Problem Cholecystectomy Source of Information: Patient - History of Present Illness Other HPI/Comments: Mr. Young is a 69 yo man with coronary artery disease, diabetes, hyperlipidemia, large hiatal hernia and history of prostate cancer who presents with high fever for the past few days. He was seen in the emergency room last Hardy for symptoms related to his hiatal hernia, these symptoms got better, but then the patient started to have fever from unclear etiology. Initially, COVID was suspected as the patient has had positive contacts. However, testing was neg ative, and on CT scan there were findings suggestive of cholecystitis, confirmed on follow up RUQ US. He denies any abdominal pain, reporting only mild bloating on review of systems. Lab work is significant for leukocytosis and total bilirubin 1.7 mg/dL, though other LFTs are within normal range. He does not appear jaundiced and no scleral icterus is observed. In the ER, he appears clinically well with normal vitals. He has received ceftriaxone and flagyl. - Related Data Allergies/Adverse Reactions: Allergies Allergy/AdvReac Type Severity Reaction Status Date / Time No Known Allergies Allergy Verified 01/12/20 10:43 Home Medications: Home Meds Ascorbate Calcium [Vitamin C] 500 mg PO BEDTIME 01/04/20 [History] Aspirin [Adult Low Dose Aspirin EC] 81 mg PO BEDTIME 01/04/20 [History] Cetirizine [ZyrTEC] 10 mg PO DAILY 01/04/20 [History] Dicyclomine [Bentyl] 20 mg PO Q6H PRN #8 tablet 01/04/20 [Rx] Ezetimibe [Zetia] 10 mg PO BEDTIME 01/04/20 [History] Levothyroxine [Synthroid] 50 mcg PO DAILY 01/04/20 [History] Omeprazole 40 mg PO DAILY 01/04/20 [History] Rosuvastatin Calcium 20 mg PO BEDTIME 01/04/20 [History] Tamsulosin [Flomax] 0.4 mg PO BEDTIME 01/04/20 [History] Ubidecarenone [Coq-10] 100 mg PO DAILY 01/04/20 [History] atenoloL [Atenolol] 25 mg PO DAILY 01/04/20 [History] lisinopriL [Lisinopril] 10 mg PO BEDTIME 01/04/20 [History] Past Medical History HEENT History: Reports: Impaired Vision Other HEENT History: wears eyeglasses Cardiovascular History: Reports: High Cholesterol, Hypertension, Stents Gastrointestinal History: Reports: GERD, Hiatal Hernia Genitourinary History: Reports: Prostate Disorder, Renal Calculus Musculoskeletal History: Reports: Fracture Endocrine/Metabolic History: Reports: Hypothyroidism Hematologic History: Reports: Iron Deficiency Oncologic (Cancer) History: Reports: Prostate - Infectious Disease History Infectious Disease History: Reports: Chicken Pox, Measles, Mumps - Past Surgical History HEENT Surgical History: Reports: Adenoidectomy, Tonsillectomy Other HEENT Surgeries/Procedures: dental crowns. Other Male Surgeries/Procedures: prostate CA. Musculoskeletal Surgical History: Reports: ORIF Social & Family History - Tobacco Use Smoking Status *Q: Never Smoker Second Hand Smoke Exposure: No - Caffeine Use Caffeine Use: Reports: Coffee - Recreational Drug Use Recreational Drug Use: No - Living Situation & Occupation Living situation: Reports: Occupation: Retired H&P Review of Systems - Review of Systems: Review Of Systems: See Below General: Reports: Fever, Decreased Appetite HEENT: Reports: No Symptoms Pulmonary: Reports: No Symptoms Cardiovascular: Reports: No Symptoms Gastrointestinal: Reports: No Symptoms Genitourinary: Reports: No Symptoms Musculoskeletal: Reports: No Symptoms Skin: Reports: No Symptoms Psychiatric: Reports: No Symptoms Neurological: Reports: No Symptoms Hematologic/Lymphatic: Reports: No Symptoms Immunologic: Reports: No Symptoms Exam - Exam Exam: See Below - Vital Signs Vital Signs: Last Vital Signs Temp 38.4 C H 01/12/20 16:35 Pulse 84 01/12/20 16:35 Resp 16 01/12/20 10:36 BP 134/78 01/12/20 16:35 Pulse Ox 98 01/12/20 16:35 Weight: 99.79 kg - Exam General: Alert, Oriented, Cooperative HEENT: Conjunctiva Clear Neck: Trachea Midline Lungs: Clear to Auscultation, Normal Respiratory Effort Cardiovascular: Regular Rate, Regular Rhythm GI/Abdominal Exam: Soft, Non-Tender, No Mass Extremities: Normal Inspection, No Pedal Edema, Other (scar from orthopedic repa ir at right ankle) Skin: Warm, Dry Neuro Extensive - Mental Status: Alert, Oriented x3 Psychiatric: Normal Mood - Patient Data Lab Results Last 24 hrs: Laboratory Results - last 24 hr 01/12/20 01/12/20 01/12/20 Range/Units 11:40 11:40 11:40 WBC 14.67 H (4.23-9.07) K/mm3 RBC 5.05 (4.63-6.08) M/mm3 Hgb 14.8 (13.7-17.5) gm/dl Hct 44.2 (40.1-51.0) % MCV 87.5 (79.0-92.2) fl MCH 29.3 (25.7-32.2) pg MCHC 33.5 (32.2-35.5) g/dl RDW Std Deviation 44.9 H (35.1-43.9) fL Plt Count 249 D (163-337) K/mm3 MPV 9.2 L (9.4-12.3) fl Neutrophils % (Manual) 87 H (40-60) % Band Neutrophils % 0 (0-10) % Lymphocytes % (Manual) 5 L (20-40) % Atypical Lymphs % 0 % Monocytes % (Manual) 8 (2-10) % Eosinophils % (Manual) 0 L (0.8-7.0) % Basophils % (Manual) 0 L (0.2-1.2) Platelet Estimate Adequate RBC Morph Comment Normal ESR (0-15) mm/hr PT 11.4 (9.7-12.0) SECONDS INR 1.05 APTT 29 (22-31) SECONDS D-Dimer, Quantitative (0.19-0.50) mg/L Sodium 138 (136-145) mEq/L Potassium 3.8 (3.5-5.1) mEq/L Chloride 101 (98-107) mEq/L Carbon Dioxide 26 (21-32) mEq/L Anion Gap 14.8 (5-15) BUN 11 (7-18) mg/dL Creatinine 1.2 (0.7-1.3) mg/dL Est Cr Clr Drug Dosing 57.00 mL/min Estimated GFR (MDRD) > 60 (>60) mL/min BUN/Creatinine Ratio 9.2 L (14-18) Glucose 145 H (80-115) mg/dL Lactic Acid (0.4-2.0) mmol/L Calcium 8.5 (8.5-10.1) mg/dL Magnesium 2.2 (1.8-2.4) mg/dl Ferritin (26-388) ng/ml Total Bilirubin 1.7 H (0.2-1.0) mg/dL GGT (15-85) U/L AST 16 (15-37) U/L ALT 33 (16-63) U/L Alkaline Phosphatase 66 (46-116) U/L Lactate Dehydrogenase 194 (85-227) U/L Troponin I < 0.017 (0.00-0.056) ng/mL C-Reactive Protein 15.5 H* (<1.0) mg/dL NT-Pro-B Natriuret Pep (0-125) pg/mL Total Protein 7.7 (6.4-8.2) g/dl Albumin 3.3 L (3.4-5.0) g/dl Globulin 4.4 gm/dL Albumin/Globulin Ratio 0.8 L (1-2) Lipase (73-393) U/L Urine Color (Yellow) Urine Appearance (Clear) Urine pH (5.0-8.0) Ur Specific Carr (1.005-1.030) Urine Protein (Negative) Urine Glucose (UA) (Negative) Urine Ketones (Negative) Urine Occult Blood (Negative) Urine Nitrite (Negative) Urine Bilirubin (Negative) Urine Urobilinogen (0.2-1.0) Ur Leukocyte Esterase (Negative) Urine RBC (0-5) /hpf Urine WBC (0-5) /hpf Ur Squamous Epith Cells (0-5) /hpf Urine Bacteria (FEW) /hpf Urine Mucus (FEW) /hpf SARS Virus RNA (PCR) (NEGATIVE) 01/12/20 01/12/20 01/12/20 Range/Units 11:40 11:40 11:40 WBC (4.23-9.07) K/mm3 RBC (4.63-6.08) M/mm3 Hgb (13.7-17.5) gm/dl Hct (40.1-51.0) % MCV (79.0-92.2) fl MCH (25.7-32.2) pg MCHC (32.2-35.5) g/dl RDW Std Deviation (35.1-43.9) fL Plt Count (163-337) K/mm3 MPV (9.4-12.3) fl Neutrophils % (Manual) (40-60) % Band Neutrophils % (0-10) % Lymphocytes % (Manual) (20-40) % Atypical Lymphs % % Monocytes % (Manual) (2-10) % Eosinophils % (Manual) (0.8-7.0) % Basophils % (Manual) (0.2-1.2) Platelet Estimate RBC Morph Comment ESR 70 H (0-15) mm/hr PT (9.7-12.0) SECONDS INR APTT (22-31) SECONDS D-Dimer, Quantitative (0.19-0.50) mg/L Sodium (136-145) mEq/L Potassium (3.5-5.1) mEq/L Chloride (98-107) mEq/L Carbon Dioxide (21-32) mEq/L Anion Gap (5-15) BUN (7-18) mg/dL Creatinine (0.7-1.3) mg/dL Est Cr Clr Drug Dosing mL/min Estimated GFR (MDRD) (>60) mL/min BUN/Creatinine Ratio (14-18) Glucose (80-115) mg/dL Lactic Acid 1.0 (0.4-2.0) mmol/L Calcium (8.5-10.1) mg/dL Magnesium (1.8-2.4) mg/dl Ferritin 272 (26-388) ng/ml Total Bilirubin (0.2-1.0) mg/dL GGT (15-85) U/L AST (15-37) U/L ALT (16-63) U/L Alkaline Phosphatase (46-116) U/L Lactate Dehydrogenase (85-227) U/L Troponin I (0.00-0.056) ng/mL C-Reactive Protein (<1.0) mg/dL NT-Pro-B Natriuret Pep (0-125) pg/mL Total Protein (6.4-8.2) g/dl Albumin (3.4-5.0) g/dl Globulin gm/dL Albumin/Globulin Ratio (1-2) Lipase (73-393) U/L Urine Color (Yellow) Urine Appearance (Clear) Urine pH (5.0-8.0) Ur Specific Carr (1.005-1.030) Urine Protein (Negative) Urine Glucose (UA) (Negative) Urine Ketones (Negative) Urine Occult Blood (Negative) Urine Nitrite (Negative) Urine Bilirubin (Negative) Urine Urobilinogen (0.2-1.0) Ur Leukocyte Esterase (Negative) Urine RBC (0-5) /hpf Urine WBC (0-5) /hpf Ur Squamous Epith Cells (0-5) /hpf Urine Bacteria (FEW) /hpf Urine Mucus (FEW) /hpf SARS Virus RNA (PCR) (NEGATIVE) 01/12/20 01/12/20 01/12/20 Range/Units 11:40 11:40 11:40 WBC (4.23-9.07) K/mm3 RBC (4.63-6.08) M/mm3 Hgb (13.7-17.5) gm/dl Hct (40.1-51.0) % MCV (79.0-92.2) fl MCH (25.7-32.2) pg MCHC (32.2-35.5) g/dl RDW Std Deviation (35.1-43.9) fL Plt Count (163-337) K/mm3 MPV (9.4-12.3) fl Neutrophils % (Manual) (40-60) % Band Neutrophils % (0-10) % Lymphocytes % (Manual) (20-40) % Atypical Lymphs % % Monocytes % (Manual) (2-10) % Eosinophils % (Manual) (0.8-7.0) % Basophils % (Manual) (0.2-1.2) Platelet Estimate RBC Morph Comment ESR (0-15) mm/hr PT (9.7-12.0) SECONDS INR APTT (22-31) SECONDS D-Dimer, Quantitative 1.78 H (0.19-0.50) mg/L Sodium (136-145) mEq/L Potassium (3.5-5.1) mEq/L Chloride (98-107) mEq/L Carbon Dioxide (21-32) mEq/L Anion Gap (5-15) BUN (7-18) mg/dL Creatinine (0.7-1.3) mg/dL Est Cr Clr Drug Dosing mL/min Estimated GFR (MDRD) (>60) mL/min BUN/Creatinine Ratio (14-18) Glucose (80-115) mg/dL Lactic Acid (0.4-2.0) mmol/L Calcium (8.5-10.1) mg/dL Magnesium (1.8-2.4) mg/dl Ferritin (26-388) ng/ml Total Bilirubin (0.2-1.0) mg/dL GGT 108 H (15-85) U/L AST (15-37) U/L ALT (16-63) U/L Alkaline Phosphatase (46-116) U/L Lactate Dehydrogenase (85-227) U/L Troponin I (0.00-0.056) ng/mL C-Reactive Protein (<1.0) mg/dL NT-Pro-B Natriuret Pep 269 H (0-125) pg/mL Total Protein (6.4-8.2) g/dl Albumin (3.4-5.0) g/dl Globulin gm/dL Albumin/Globulin Ratio (1-2) Lipase 75 (73-393) U/L Urine Color (Yellow) Urine Appearance (Clear) Urine pH (5.0-8.0) Ur Specific Carr (1.005-1.030) Urine Protein (Negative) Urine Glucose (UA) (Negative) Urine Ketones (Negative) Urine Occult Blood (Negative) Urine Nitrite (Negative) Urine Bilirubin (Negative) Urine Urobilinogen (0.2-1.0) Ur Leukocyte Esterase (Negative) Urine RBC (0-5) /hpf Urine WBC (0-5) /hpf Ur Squamous Epith Cells (0-5) /hpf Urine Bacteria (FEW) /hpf Urine Mucus (FEW) /hpf SARS Virus RNA (PCR) (NEGATIVE) 01/12/20 01/12/20 Range/Units 11:44 12:44 WBC (4.23-9.07) K/mm3 RBC (4.63-6.08) M/mm3 Hgb (13.7-17.5) gm/dl Hct (40.1-51.0) % MCV (79.0-92.2) fl MCH (25.7-32.2) pg MCHC (32.2-35.5) g/dl RDW Std Deviation (35.1-43.9) fL Plt Count (163-337) K/mm3 MPV (9.4-12.3) fl Neutrophils % (Manual) (40-60) % Band Neutrophils % (0-10) % Lymphocytes % (Manual) (20-40) % Atypical Lymphs % % Monocytes % (Manual) (2-10) % Eosinophils % (Manual) (0.8-7.0) % Basophils % (Manual) (0.2-1.2) Platelet Estimate RBC Morph Comment ESR (0-15) mm/hr PT (9.7-12.0) SECONDS INR APTT (22-31) SECONDS D-Dimer, Quantitative (0.19-0.50) mg/L Sodium (136-145) mEq/L Potassium (3.5-5.1) mEq/L Chloride (98-107) mEq/L Carbon Dioxide (21-32) mEq/L Anion Gap (5-15) BUN (7-18) mg/dL Creatinine (0.7-1.3) mg/dL Est Cr Clr Drug Dosing mL/min Estimated GFR (MDRD) (>60) mL/min BUN/Creatinine Ratio (14-18) Glucose (80-115) mg/dL Lactic Acid (0.4-2.0) mmol/L Calcium (8.5-10.1) mg/dL Magnesium (1.8-2.4) mg/dl Ferritin (26-388) ng/ml Total Bilirubin (0.2-1.0) mg/dL GGT (15-85) U/L AST (15-37) U/L ALT (16-63) U/L Alkaline Phosphatase (46-116) U/L Lactate Dehydrogenase (85-227) U/L Troponin I (0.00-0.056) ng/mL C-Reactive Protein (<1.0) mg/dL NT-Pro-B Natriuret Pep (0-125) pg/mL Total Protein (6.4-8.2) g/dl Albumin (3.4-5.0) g/dl Globulin gm/dL Albumin/Globulin Ratio (1-2) Lipase (73-393) U/L Urine Color Yellow (Yellow) Urine Appearance Clear (Clear) Urine pH 7.0 (5.0-8.0) Ur Specific Carr 1.015 (1.005-1.030) Urine Protein Trace H (Negative) Urine Glucose (UA) Negative (Negative) Urine Ketones Negative (Negative) Urine Occult Blood Trace-intact H (Negative) Urine Nitrite Negative (Negative) Urine Bilirubin Negative (Negative) Urine Urobilinogen 1.0 (0.2-1.0) Ur Leukocyte Esterase Negative (Negative) Urine RBC 0-5 (0-5) /hpf Urine WBC 0-5 (0-5) /hpf Ur Squamous Epith Cells 5-10 H (0-5) /hpf Urine Bacteria Few (FEW) /hpf Urine Mucus Not seen (FEW) /hpf SARS Virus RNA (PCR) Negative (NEGATIVE) Result Diagrams: 01/12/20 11:40 01/12/20 11:40 Sepsis Event Note - Evaluation Sepsis Screening Result: No Definite Risk - Focused Exam Vital Signs: Vital Signs Temp Pulse Resp BP Pulse Ox 01/12/20 16:35 38.4 C H 84 134/78 98 01/12/20 10:36 37.1 C 81 16 120/79 95 Date Exam was Performed: 01/12/20 Time Exam was Performed: 17:24 *Q Meaningful Use (ADM) - VTE Risk Assess *Q Each Risk Factor Represents 2 Points: Age 60 - 74 Years, Laparoscopic surgery greater than 45 minutes Total Score 2 Point Risk Factors: 4 Problem List Initiated/Reviewed/Updated: Yes Orders Last 24hrs: Active Orders 24 hr Category Date Time Status Patient Status [ADT] Routine ADT 01/12/20 16:55 Active EKG Documentation Completion [RC] STAT Care 01/12/20 11:05 Active Notify Provider Consults [RC] ASDIRECTED Care 01/12/20 16:42 Active Consult to Physician [CONS] Stat Cons 01/12/20 16:41 Active Chest 1V Frontal [CR] Stat Exams 01/12/20 11:05 Taken CULTURE BLOOD [BC] Stat Lab 01/12/20 11:40 Received CULTURE BLOOD [BC] Stat Lab 01/12/20 11:54 Received Dextrose 5%-0.9% NaCl [Dextrose 5%-Normal Saline] 1,000 Med 01/12/20 11:15 Active ml IV ASDIRECTED Sodium Chloride 0.9% [Saline Flush] Med 01/12/20 14:16 Active 10 ml FLUSH ONETIME PRN cefTRIAXone [Rocephin] 2 gm Med 01/12/20 14:00 Active Sodium Chloride 0.9% [Normal Saline] 100 ml IV Q24H metroNIDAZOLE/Normal Saline [Flagyl 500 MG in NS 100 ML Med 01/12/20 16:31 Active ] 500 mg Premix Bag 1 bag IV ONETIME Blood Culture x2 Reflex Set [OM.PC] Stat Ot 01/12/20 11:05 Ordered Schedule Procedure [COMM] Stat Ot 01/12/20 16:55 Ordered Medication Orders Dextrose/Sodium Chloride (Dextrose 5%-Normal Saline) 1,000 mls @ 150 mls/hr IV ASDIRECTED [facility] Last Admin: 01/12/20 11:49 Dose: 150 mls/hr Documented by: LAWRENCE Ceftriaxone Sodium 2 gm/ (Sodium Chloride) 100 mls @ 200 mls/hr IV Q24H [facility] Last Admin: 01/12/20 15:00 Dose: 200 mls/hr Documented by: LAWRENCE Metronidazole 500 mg/ Premix 100 mls @ 100 mls/hr IV ONETIME ONE Stop: 01/12/20 17:30 Last Admin: 01/12/20 16:43 Dose: 100 mls/hr Documented by: LAWRENCE Sodium Chloride (Saline Flush) 10 ml FLUSH ONETIME PRN PRN Reason: IV FLUSH Last Admin: 01/12/20 14:51 Dose: 10 ml Documented by: MARLO Assessment/Plan Comment:: Findings consistent with cholecystitis, which I worry is severe. The elevated bilirubin with high fever raises some question of cholangitis. Appropriate antibiotics have been started in the emergency room. Plan for laparoscopic cholecystectomy with intra-operative cholangiogram. If positive, I mentioned the potential need for transfer to a site with available advanced gastroenterology/ ERCP. I reviewed the details of surgery including risk of post-operative hemorrhage and bile duct injury. Plan to continue antibiotics in the post- operative period, and admit patient overnight for observation. - Mortality Measure Prognosis:: Good
[2020-01-12] MEDS ORDERED: Lactated Ringers 1,000 ML ONE ×2 (18:03→19:30)
--- NOTE | 2020-01-12 19:19 | CR ---
Operative cholangiogram:: 3 fluoroscopic spot views were obtained during cholangiogram study. Distal CBD is obscured by laparoscopic tools. Other portions of CBD and CHD show no discrete filling defects to indicate retained stone. Small portion of the visualized intrahepatic ducts shows no discrete filling defects. Impression: 1. Distal CBD not visualized. 2. Other portions of the intraoperative cholangiogram show no discrete abnormality. Diagnostic code #2 This report was dictated in MDT
[2020-01-12] MEDS ORDERED: fentaNYL 100 MCG/2 ML SDV ONE (20:07)
[2020-01-12] MEDS ORDERED: Lactated Ringers 1,000 ML IV SCH (20:30)
[2020-01-12] MEDS ORDERED: fentaNYL 100 MCG/2 ML SDV IVPUSH PRN (20:30)
--- NOTE | 2020-01-12 20:31 | PCM.POSTAN ---
POST ANESTHESIA ASSESSMENT - MENTAL STATUS Mental Status: Alert, Oriented - VITAL SIGNS Vital Signs: Last Vital Signs Temp 38.4 C H 01/12/20 16:35 Pulse 84 01/12/20 16:35 Resp 16 01/12/20 10:36 BP 134/78 01/12/20 16:35 Pulse Ox 98 01/12/20 16:35 - RESPIRATORY Respiratory Status: Respiratory Rate WNL, Airway Patent, O2 Saturation Stable, Supplemental Oxygen - CARDIOVASCULAR CV Status: Pulse Rate WNL, Blood Pressure Stable - GASTROINTESTINAL GI Status: No Symptoms - PAIN Pain Score: 0 - POST OP HYDRATION Hydration Status: Adequate & Stable - OBSERVATIONS Free Text/Narrative:: no anesthesia complications noted
--- NOTE | 2020-01-12 20:53 | PCM.PRNOTE ---
- Free Text/Narrative Note: Date: 01/12/2020 Operation: laparoscopic cholecystectomy with intraoperative cholangiography Surgeon: Florentino Lechuga MD Assisting: Mary RESTREPO Findings: necrotic, abscessed gallbladder with gallstones. Very difficult dissection. The infundibulum and cystic duct were friable and tore easily during retraction. At the site of partial avulsion of the cystic duct, a cholangiocatheter was inserted and cholangiogram obtained, which appeared to show a long cystic duct and intact biliary tree. Due to concern for complete avulsion of the cystic duct, a small clamp was placed distal to the ductotomy which I am not sure completely occludes the cystic duct. Detailed Report: The patient was taken to the operating room and placed in supine position. Timeout was performed, and general endotracheal anesthesia was initiated. An NG tube was placed for decompression of the stomach prior to starting the operatio n. The abdominal hair was clipped, and the abdomen was prepped and draped in usual sterile fashion. A total of 25 cc 0.5% Marcaine was injected intradermally at all incision sites for local anesthesia. A small incision was made at the left subcostal margin in line with the midclavicular line, and Veress needle was inserted into the abdomen. The abdomen was insufflated to 15 mmHg with CO2. Air was aspirated with a syringe at the umbilicus, and a 5 mm bladed trocar was inserted at this site. A 5 mm 30 degree laparoscope was inserted into the abdomen, and the site of Veress needle insertion was inspected. No injury on entry was apparent. The Veress needle was removed, and additional 5 mm ports were placed under laparoscopic vision at the right lateral abdomen and right upper quadrant. A 12 mm bladed port was placed at the subxiphoid region. Graspers were placed, and the omentum was peeled off the gallbladder. The gallbladder was very thickened, necrotic and tense. Laparoscopic hollow needle was used to decompress the gallbladder, and purulent thin white fluid was drained from the gallbladder. The gallbladder was severely inflamed, with evidence of intramural abscess and gangrene. It was challenging to separate the omentum, which was cemented to the gallbladder. Careful blunt dissection with the suction workers compensation attorney was used to separate the gallbladder starting at the fundus working down towards the infundibulum. There was a fair amount of hemorrhage associated with dissection due to friability and inflammation of the gallbladder. Once it was apparent that the infundibulum was exposed, the gallbladder was retracted anteriorly and superiorly with a grasper on the fundus, and laterally with a grasper on the infundibulum. The gallbladder was very friable, and tore easily. During retraction, a hole in the gallbladder body was noted, and gallstones were visualized. Although dissection proceeded very carefully, there was a ductotomy apparent at the proximal cystic duct from retraction, and small amount of sheikh bile was noted to emanate from the site. A cholangiocatheter was inserted at this site, and the Chavis clamp was used to close off the cystic duct on the gallbladder side. A cholangiogram was obtained, which showed no evidence of injury to the common bile duct. Contrast seemed to flow into the duodenum without obstruction. The cystic duct appeared quite long, and the ductotomy was close to the gallbladder. Due to concern for complete avulsion of the cystic duct, a small hemo-lock clip was placed at the distal portion of the opening without complete assurance that the clip encompassed the entire cystic duct. An extra-large Hemoclip was placed proximally at the site of the opening, with an additional clip placed close to the cystic duct and infundibulum. The cystic artery was never clearly identified. The gallbladder was then dissected from the liver with the electrode, placed in an Endo Catch bag and removed from the body. The dissection field was thoroughly suctioned and irrigated. Surgicel was used to aid with hemostasis at the gallbladder fossa. No obvious bile leak was identified intraoperatively. FloSeal was placed over the site of clips. A 10 [place] BHUPENDRA drain was then placed intra-abdominal and brought out through the right lateral incision. The drain was placed in the gallbladder fossa. The 12 mm port was then removed, and the fascia was closed with 0 Vicryl placed using the PMI laparoscopic suture passer. The other 5 mm ports were removed under visualization of the laparoscope. Pneumoperitoneum was released, and all skin incisions were closed with absorbable suture and dressed with Dermabond. The drain site was secured with a 3-0 nylon stitch. The patient tolerated the procedure well.
[2020-01-12] MEDS ORDERED: Lisinopril 10 MG Tab PO SCH (21:00)
[2020-01-12] MEDS ORDERED: Tamsulosin 0.4 MG Cap.ER PO SCH (21:00)
[2020-01-12] MEDS ORDERED: Tamsulosin 0.4 MG Cap.ER PO ONE ×3 (22:30→23:05)
[2020-01-12] MEDS ORDERED: Lisinopril 10 MG Tab PO ONE ×3 (22:30→23:15)
[2020-01-12] MEDS ORDERED: Rosuvastatin 10 MG Tab PO ONE ×3 (22:45→23:05)
[2020-01-12] MEDS ORDERED: Acetaminophen 325 MG Tab PO ONE ×2 (23:00→23:05)
[2020-01-12] MEDS: oxyCODONE 5 MG Tab PO PRN (23:23)
[2020-01-12] MEDS: Acetaminophen 325 MG Tab PO SCH (23:38)
[2020-01-13] MEDS: oxyCODONE 5 MG Tab PO PRN ×3 (04:21→13:01)
[2020-01-13] MEDS ORDERED: Morphine 2 MG/ML SYRINGE IVPUSH ONE ×2 (05:19→11:27)
[2020-01-13] MEDS: Acetaminophen 325 MG Tab PO SCH (05:36)
[2020-01-13] MEDS ORDERED: Ondansetron 4 MG Tab.DIS PO PRN (07:11)
[2020-01-13] MEDS ORDERED: Morphine 2 MG/ML SYRINGE IVPUSH PRN (07:11)
[2020-01-13] MEDS ORDERED: D5 1/2 NS w/ 20 mEq/L KCl 1,000 ML IV SCH (07:15)
--- NOTE | 2020-01-13 07:21 | PCM.SN.2 ---
- Free Text/Narrative Note: POD 1 s/p laparoscopic cholecystectomy with IOC for gangrenous cholecystitis S: pain worse this morning, 8/10; alleviated with morphine. post-void residual of 450 overnight, in-and-out catheterization performed. BHUPENDRA drain with 50 cc bile tinged serous fluid out. O: AF-VSS No acute distress No icterus or jaundice Abdomen protuberant, appropriately tender, BHUPENDRA drain in place with light yellow clear effluent Labs reviewed, WBC down to 12, total bilirubin down to 1.4 from 1.7 mg/dL, other labs unremarkable A: Doing okay after surgery. Concern remains for cystic duct leak, though drain output has been minimal. If there is clear evidence of ongoing leak as time goes on, will arrange for ERCP and stenting. P: -hold tylenol to monitor for fever. oxycodone and morphine prn pain -IS, OOB, wean O2 -switch IVF to D5 1/2 NS w KCl at 75 cc/hr -regular diet -continue bulb suction to BHUPENDRA drain and monitor output -continue ceftriaxone -restart home medications -add heparin 5,000 SC for DVT ppx -anticipate discharge this evening vs tomorrow morning if patient is doing well
[2020-01-13] MEDS: Heparin Sodium 5,000 Units/ML Vial SUBCUT SCH ×2 (08:21→15:37)
--- NOTE | 2020-01-13 08:39 | PCM48HPAN ---
Post Anesthesia Note - EVALUATION WITHIN 48HRS OF ANESTHETIC Vital Signs in Normal Range: Yes Patient Participated in Evaluation: Yes Respiratory Function Stable: Yes Airway Patent: Yes Cardiovascular Function Stable: Yes Hydration Status Stable: Yes Pain Control Satisfactory: Yes (taking pain meds) Nausea and Vomiting Control Satisfactory: Yes Mental Status Recovered: Yes Vital Signs: Last Vital Signs Temp 36.8 C 01/13/20 07:48 Pulse 90 01/13/20 07:48 Resp 20 01/13/20 07:48 BP 107/64 01/13/20 07:48 Pulse Ox 91 L 01/13/20 07:48 - COMMENTS/OBSERVATIONS Free Text/Narrative:: no anesthesia complications noted
[2020-01-13] MEDS ORDERED: Atenolol 25 MG Tab PO SCH (09:00)
[2020-01-13] MEDS ORDERED: Aspirin 81 MG Tab.EC PO SCH (09:00)
[2020-01-13] MEDS ORDERED: Non-Formulary Medication 1 Each (Omeprazole [Omeprazole] 40 MG) PO SCH (09:00)
[2020-01-13] MEDS ORDERED: Levothyroxine 50 MCG Tab PO SCH (09:00)
[2020-01-13] MEDS ORDERED: ROSUVASTATIN 40 MG PO SCH ×2 (11:30)
[2020-01-13] MEDS: cefTRIAXone 2 GM in Sodium Chloride 0.9% 100 ML IV SCH (13:03)
[2020-01-13] MEDS ORDERED: Ampicillin/Sulbactam Na 3 GM in Sodium Chloride 0.9% 100 ML IV SCH (16:15)
--- NOTE | 2020-01-13 16:45 | PCM.DCSUM1 ---
Discharge Summary - Hospital Course Brief History: Mr. Young presented to the emergency room with high fevers for a few days, and during workup was found to have cholecystitis, with compatible imaging findings, leukocytosis, and total bilirubin of 1.7 mg/dL. He was taken to the OR for laparoscopic cholecystectomy and intraoperative cholangiogram. The gallbladder was gangrenous and abscessed. Gallbladder aspirate shows Gram negative rods. There was concern for incomplete clipping of the cystic duct, and rather than risk injury to the biliary tree, a BHUPENDRA drain was left in place, with minimal bilious drainage. The cholangiogram showed no injury to the common duct, contrast went into the duodenum, and there appeared to be possible stones in the intrahepatic bile ducts. Postoperatively, the patient had significant abdominal pain, continued fever, tachycardia and tachypnea. His WBC had come down from 14,000 to 11,900, and total bilirubin down to 1.4 from 1.7 mg/dL. Transfer was arranged to [facility] in [place] due to concern for cholangitis, cystic duct leak, and need for ERCP. Diagnosis: Stroke: No - Discharge Data Discharge Date: 01/13/20 Discharge Disposition: DC/Tfer to Acute Hospital 02 Condition: Good - Referral to Home Health Primary Care Physician: Kun Grant Jr, MD - Patient Summary/Data Operative Procedure(s) Performed: laparoscopic cholecystectomy Complications: cystic duct leak Consults: Consultations 01/12/20 16:41 Consult to Physician [CONS] Stat - Patient Instructions Diet, Other: NPO - Discharge Plan *PRESCRIPTION DRUG MONITORING PROGRAM REVIEWED*: Not Applicable *COPY OF PRESCRIPTION DRUG MONITORING REPORT IN PATIENT DARLENE: Not Applicable Home Medications: Home Meds Ascorbate Calcium [Vitamin C] 500 mg PO BEDTIME 01/04/20 [History] Aspirin [Adult Low Dose Aspirin EC] 81 mg PO BEDTIME 01/04/20 [History] Cetirizine [ZyrTEC] 10 mg PO DAILY 01/04/20 [History] Ezetimibe [Zetia] 10 mg PO BEDTIME 01/04/20 [History] Levothyroxine [Synthroid] 50 mcg PO DAILY 01/04/20 [History] Omeprazole 40 mg PO DAILY 01/04/20 [History] Tamsulosin [Flomax] 0.4 mg PO BEDTIME 01/04/20 [History] Ubidecarenone [Coq-10] 100 mg PO DAILY 01/04/20 [History] atenoloL [Atenolol] 25 mg PO DAILY 01/04/20 [History] lisinopriL [Lisinopril] 10 mg PO BEDTIME 01/04/20 [History] Cholecalciferol (Vitamin D3) [Vitamin D3] 1 tab PO DAILY 01/12/20 [History] Rosuvastatin Calcium 40 mg PO DAILY 01/13/20 [History] Forms: ED Department Discharge Referrals: Kun Grant Jr, MD [Primary Care Provider] - - Discharge Summary/Plan Comment DC Time >30 min.: No Discharge Summary/Plan Comment: Plan for transfer to [facility] in [place] with plan for treatment of cholangitis and gastroenterology consultation with likely ERCP and stenting. - Patient Data Vitals - Most Recent: Last Vital Signs Temp 38.3 C H 01/13/20 15:52 Pulse 104 H 01/13/20 15:52 Resp 24 H 01/13/20 15:52 BP 123/71 01/13/20 15:52 Pulse Ox 95 01/13/20 15:52 Weight - Most Recent: 102.965 kg I&O - Last 24 hours: Intake & Output 01/13/20 01/13/20 01/13/20 06:59 14:59 22:59 Intake Total 1088 Output Total 715 500 Balance 373 -500 Lab Results - Last 24 hrs: Laboratory Results - last 24 hr 01/13/20 01/13/20 Range/Units 04:16 04:16 WBC 11.92 H (4.23-9.07) K/mm3 RBC 4.27 L (4.63-6.08) M/mm3 Hgb 12.4 L D (13.7-17.5) gm/dl Hct 38.3 L (40.1-51.0) % MCV 89.7 (79.0-92.2) fl MCH 29.0 (25.7-32.2) pg MCHC 32.4 (32.2-35.5) g/dl RDW Std Deviation 45.7 H (35.1-43.9) fL Plt Count 225 (163-337) K/mm3 MPV 9.2 L (9.4-12.3) fl Neut % (Auto) 85.8 H (34.0-67.9) % Lymph % (Auto) 6.0 L (21.8-53.1) % [place] % (Auto) 7.8 (5.3-12.2) % Eos % (Auto) 0.1 L (0.8-7.0) Baso % (Auto) 0.1 (0.1-1.2) % Neut # (Auto) 10.24 H (1.78-5.38) K/mm3 Lymph # (Auto) 0.71 L (1.32-3.57) K/mm3 [place] # (Auto) 0.93 H (0.30-0.82) K/mm3 Eos # (Auto) 0.01 L (0.04-0.54) K/mm3 Baso # (Auto) 0.01 (0.01-0.08) K/mm3 Manual Slide Review Abnormal smear Sodium 138 (136-145) mEq/L Potassium 4.0 (3.5-5.1) mEq/L Chloride 104 (98-107) mEq/L Carbon Dioxide 27 (21-32) mEq/L Anion Gap 11.0 (5-15) BUN 9 (7-18) mg/dL Creatinine 1.2 (0.7-1.3) mg/dL Est Cr Clr Drug Dosing 57.00 mL/min Estimated GFR (MDRD) > 60 (>60) mL/min BUN/Creatinine Ratio 7.5 L (14-18) Glucose 143 H (80-115) mg/dL Calcium 7.7 L (8.5-10.1) mg/dL Total Bilirubin 1.4 H (0.2-1.0) mg/dL AST 24 (15-37) U/L ALT 31 (16-63) U/L Alkaline Phosphatase 55 (46-116) U/L Total Protein 6.2 L (6.4-8.2) g/dl Albumin 2.5 L (3.4-5.0) g/dl Globulin 3.7 gm/dL Albumin/Globulin Ratio 0.7 L (1-2) VERNON Results - Last 24 hrs: Microbiology 01/12/20 18:20 Gram Stain - Final Bile Anaerobic Culture - Preliminary Gram Negative Rods 01/12/20 11:54 Aerobic Blood Culture - Preliminary Blood - Venous - Lab Draw NO GROWTH AFTER 1 DAY Anaerobic Blood Culture - Final 01/12/20 11:40 Aerobic Blood Culture - Preliminary Blood - Venous NO GROWTH AFTER 1 DAY Anaerobic Blood Culture - Preliminary NO GROWTH AFTER 1 DAY Med Orders - Current: Current Medications Aspirin (Halfprin) 81 mg PO BEDTIME [facility] Last Admin: 01/13/20 11:51 Dose: 81 mg Documented by: Atenolol (Tenormin) 25 mg PO DAILY [facility] Last Admin: 01/13/20 11:44 Dose: 25 mg Documented by: Heparin Sodium (Porcine) (Heparin Sodium) 5,000 units SUBCUT Q8H [facility] Last Admin: 01/13/20 15:37 Dose: 5,000 units Documented by: Potassium Chloride/Dextrose/Sod Cl (D5 1/2 Ns W/ 20 Meq/L Kcl) 1,000 mls @ 75 mls/hr IV ASDIRECTED [facility] Last Admin: 01/13/20 08:22 Dose: 75 mls/hr Documented by: Ampicillin Sodium/Sulbactam (Sodium 3 gm/ Sodium Chloride) 100 mls @ 200 mls/hr IV Q6H [facility] Last Admin: 01/13/20 16:24 Dose: 200 mls/hr Documented by: Levothyroxine Sodium (Synthroid) 50 mcg PO DAILY [facility] Last Admin: 01/13/20 11:49 Dose: 50 mcg Documented by: Lisinopril (Prinivil) 10 mg PO BEDTIME [facility] Last Admin: 01/13/20 15:07 Dose: Not Given Documented by: Morphine Sulfate (Morphine) 1 mg IVPUSH Q4H PRN PRN Reason: Breakthrough Pain Last Admin: 01/13/20 10:20 Dose: 1 mg Documented by: Non-Formulary Medication (Omeprazole [Omeprazole]) 40 mg PO DAILY [facility] Last Admin: 01/13/20 11:50 Dose: 40 mg Documented by: Rosuvastatin 40mg Pt (Own Med) 0 each PO DAILY [facility] Last Admin: 01/13/20 11:53 Dose: 40 each Documented by: Ondansetron HCl (Zofran Odt) 4 mg PO Q6H PRN PRN Reason: Nausea/Vomiting Oxycodone HCl (Oxycodone) 5 mg PO Q4H PRN PRN Reason: Pain (moderate 4-6) Last Admin: 01/13/20 13:01 Dose: 5 mg Documented by: Sodium Chloride (Saline Flush) 10 ml FLUSH ONETIME PRN PRN Reason: IV FLUSH Last Admin: 01/12/20 14:51 Dose: 10 ml Documented by: Tamsulosin HCl (Flomax) 0.4 mg PO BEDTIME [facility] Last Admin: 01/13/20 15:07 Dose: Not Given Documented by: Discontinued Medications Acetaminophen (Tylenol) 975 mg PO Q8H [facility] Last Admin: 01/13/20 05:36 Dose: 975 mg Documented by: Acetaminophen (Tylenol) 975 mg PO ONETIME ONE Stop: 01/12/20 23:01 Last Admin: 01/12/20 23:39 Dose: Not Given Documented by: Acetaminophen (Tylenol) 975 mg PO ONETIME ONE Stop: 01/12/20 23:06 Last Admin: 01/12/20 23:39 Dose: Not Given Documented by: Bupivacaine HCl/Epinephrine Bitart (Marcaine 0.5%/Epinephrine 1:200,000) Confirm Administered Dose 50 ml .ROUTE .STK-MED ONE Stop: 01/12/20 17:14 Last Admin: 01/12/20 18:11 Dose: 25 ml Documented by: Fentanyl (Sublimaze) Confirm Administered Dose 250 mcg .ROUTE .STK-MED ONE Stop: 01/12/20 17:02 Fentanyl (Sublimaze) Confirm Administered Dose 100 mcg .ROUTE .STK-MED ONE Stop: 01/12/20 20:08 Fentanyl (Sublimaze) 50 mcg IVPUSH Q5M PRN PRN Reason: Pain Glycopyrrolate () Confirm Administered Dose 1 mg .ROUTE .STK-MED ONE Stop: 01/12/20 20:01 Dextrose/Sodium Chloride (Dextrose 5%-Normal Saline) 1,000 mls @ 150 mls/hr IV ASDIRECTED [facility] Last Admin: 01/12/20 11:49 Dose: 150 mls/hr Documented by: Ceftriaxone Sodium 2 gm/ (Sodium Chloride) 100 mls @ 200 mls/hr IV Q24H [facility] Last Admin: 01/13/20 13:03 Dose: 200 mls/hr Documented by: Metronidazole 500 mg/ Premix 100 mls @ 100 mls/hr IV ONETIME ONE Stop: 01/12/20 17:30 Last Admin: 01/12/20 16:43 Dose: 100 mls/hr Documented by: Lidocaine HCl (Xylocaine-Mpf 1%) Confirm Administered Dose 4 mls @ as directed .ROUTE .STK-MED ONE Stop: 01/12/20 17:03 Lactated Ringer's (Ringers, Lactated) Confirm Administered Dose 1,000 mls @ as directed .ROUTE .STK-MED ONE Stop: 01/12/20 18:04 Lactated Ringer's (Ringers, Lactated) Confirm Administered Dose 1,000 mls @ as directed .ROUTE .STK-MED ONE Stop: 01/12/20 19:31 Lactated Ringer's (Ringers, Lactated) 1,000 mls @ 100 mls/hr IV ASDIRECTED [facility] Last Admin: 01/12/20 23:22 Dose: 100 mls/hr Documented by: Iopamidol (Isovue-300 (61%)) 100 ml IVPUSH ONETIME ONE Stop: 01/12/20 14:17 Last Admin: 01/12/20 14:51 Dose: 100 ml Documented by: Iopamidol (Isovue-300 (61%)) Confirm Administered Dose 50 ml .ROUTE .STK-MED ONE Stop: 01/12/20 17:29 Last Admin: 01/12/20 18:52 Dose: 15 ml Documented by: Lisinopril (Prinivil) 10 mg PO BEDTIME ONE Stop: 01/12/20 22:31 Last Admin: 01/12/20 23:38 Dose: 10 mg Documented by: Lisinopril (Prinivil) 10 mg PO ONETIME ONE Stop: 01/12/20 23:01 Last Admin: 01/12/20 23:40 Dose: Not Given Documented by: Lisinopril (Prinivil) 10 mg PO ONETIME ONE Stop: 01/12/20 23:16 Last Admin: 01/12/20 23:39 Dose: Not Given Documented by: Midazolam HCl (Versed 1 Mg/Ml) Confirm Administered Dose 2 mg .ROUTE .STK-MED ONE Stop: 01/12/20 17:02 Morphine Sulfate (Morphine) 1 mg IVPUSH ONETIME ONE Stop: 01/13/20 05:20 Last Admin: 01/13/20 05:33 Dose: 1 mg Documented by: Morphine Sulfate (Morphine) 1 mg IVPUSH ONETIME ONE Stop: 01/13/20 11:28 Last Admin: 01/13/20 11:37 Dose: 1 mg Documented by: Neostigmine Methylsulfate (Neostigmine Methylsulfate) Confirm Administered Dose 5 mg .ROUTE .STK-MED ONE Stop: 01/12/20 20:01 Rosuvastatin 40mg Pt (Own Med) 0 each PO DAILY [facility] Ondansetron HCl (Zofran) Confirm Administered Dose 4 mg .ROUTE .STK-MED ONE Stop: 01/12/20 17:02 Propofol (Diprivan 20 Ml) Confirm Administered Dose 200 mg .ROUTE .STK-MED ONE Stop: 01/12/20 17:02 Rocuronium [place] (Zemuron) Confirm Administered Dose 50 mg .ROUTE .STK-MED ONE Stop: 01/12/20 17:02 Rocuronium [place] (Zemuron) Confirm Administered Dose 50 mg .ROUTE .STK-MED ONE Stop: 01/12/20 19:30 Rosuvastatin Calcium (Crestor) 20 mg PO ONETIME ONE Stop: 01/12/20 22:46 Last Admin: 01/12/20 23:38 Dose: 20 mg Documented by: Rosuvastatin Calcium (Crestor) 20 mg PO ONETIME ONE Stop: 01/12/20 23:01 Last Admin: 01/12/20 23:40 Dose: Not Given Documented by: Rosuvastatin Calcium (Crestor) 20 mg PO ONETIME ONE Stop: 01/12/20 23:06 Last Admin: 01/12/20 23:39 Dose: Not Given Documented by: Sodium Chloride (Normal Saline) Confirm Administered Dose 50 ml .ROUTE .STK-MED ONE Stop: 01/12/20 17:29 Last Admin: 01/12/20 18:52 Dose: 15 ml Documented by: Sodium Chloride (Normal Saline) Confirm Administered Dose 50 ml .ROUTE .STK-MED ONE Stop: 01/12/20 18:02 Tamsulosin HCl (Flomax) 0.4 mg PO BEDTIME ONE Stop: 01/12/20 22:31 Last Admin: 01/12/20 23:37 Dose: 0.4 mg Documented by: Tamsulosin HCl (Flomax) 0.4 mg PO ONETIME ONE Stop: 01/12/20 23:01 Last Admin: 01/12/20 23:40 Dose: Not Given Documented by: Tamsulosin HCl (Flomax) 0.4 mg PO ONETIME ONE Stop: 01/12/20 23:06 Last Admin: 01/12/20 23:39 Dose: Not Given Documented by:
[2020-01-13] MEDS ORDERED: Lactated Ringers 1,000 ML ONE (16:55)
--- NOTE | 2020-01-14 05:50 | CR ---
Chest: Portable view of the chest was obtained. Comparison: Previous chest x-ray of 01/04/20. Heart size and mediastinum are normal. Lungs are clear with no acute parenchymal change. Bony structures are grossly intact. Impression: 1. Nothing acute is seen on portable chest x-ray. Diagnostic code #1 This report was dictated in MDT
== END 2020-01-13 17:15 ==
LOC: JD.ED 10:28 → JD.SDS 16:59 → JD.MS 20:30
PROVIDERS: ADMIT Surgery; ATTEND Surgery
DX: K80.00 Calculus of gallbladder with acute cholecystitis without obstruction (principal); K82.A1 Gangrene of gallbladder in cholecystitis; E78.00 Pure hypercholesterolemia, unspecified; I10 Essential (primary) hypertension; K21.9 Gastro-esophageal reflux disease without esophagitis; E03.9 Hypothyroidism, unspecified; Z79.899 Other long term (current) drug therapy; Z79.82 Long term (current) use of aspirin; Z11.59 Encounter for screening for other viral diseases
CPT/HCPCS: 36415; 47563; 51701; 51798; 71045; 74177; 74300; 76705; 80053; 81001; 82728; 82977; 83605; 83615; 83690; 83735; 83880; 84484; 85007; 85025; 85027; 85379; 85610; 85652; 85730; 86140; 87040; 87075; 87077; 87186; 87205; 93005; 96365; 96367; 99285; A9270; J0295; J0696; J1644; J2001; J2270; J2405; J2704; J2710; J3010; J3480; J3490; J7042; J7050; J7120; Q9967; U0002; 00790; 93010; J2250